=== PATIENT | male | born 1965 | race Caucasian/White ===

== ENCOUNTER 2016-11-01 19:43 | Emergency (ER) | payer OTHER ==
[~2016-11-01] VITALS: Ht 170.2 cm; Wt 73.5 kg
[2016-11-01 19:46] VITALS: Ht 170.2 cm; Wt 73.5 kg
--- NOTE | 2016-11-01 23:34 | ERD ---
ER Documentation Chief Complaint Date/Time DATE: 11/01/16 TIME: 23:26 Chief Complaint dizziness x 3 weeks on and off HPI This pleasant 51-year-old male patient reports 2 week history of dizziness. Patient reports he was seen and treated by his primary care physician for vertigo with meclizine, allergic rhinitis with loratadine, and a sleeping pill for insomnia. Patient reports that he took all medication as prescribed, is out of meclizine reports he is still dizzy when he turns his head. Patient reports he is not able to work because of dizziness. He denies symptoms at this time. Reports that he has had nausea and vomiting. Patient reports it feels like he is spinning. Patient also reports history of seasonal allergies, states he has a bad taste in his mouth and no appetite. Patient denies headache , dizziness at this time, chest pain, palpitations, shortness of breath, change in vision. ROS All systems reviewed and are negative except as per history of present illness. Medications Home Meds No Active Prescriptions or Reported Meds Allergies Allergies: Coded Allergies: No Known Allergy (Unverified , 09/06/14) . PMhx/Soc History of Surgery: No Anesthesia Reaction: No Hx Neurological Disorder: No Hx Respiratory Disorders: No Hx Cardiac Disorders: No Hx Psychiatric Problems: No Hx Miscellaneous Medical Probl: No (DENIES MEDICAL AND SURGICAL HX.) Hx Alcohol Use: No Hx Substance Use: No Hx Tobacco Use: No Smoking Status: Never smoker Physical Exam Vitals Vital Signs Date Time Temp Pulse Resp B/P Pulse Ox O2 Delivery O2 Flow Rate FiO2 11/01/16 19:46 98.8 85 20 170/90 100 Vitals stable, triage notes reviewed Physical Exam Const: No acute distress Head: Atraumatic Eyes: Normal Conjunctiva PERRLA, EOMI ENT: Bilateral tympanic membranes dull, retracted, nasal mucosa crusted with yellow mucus, nasal septum is inflamed, erythemic, without bleeding points, maxillary tenderness and pressure behind his eyes with leaning forward. Pharynx is pink uvula rises and falls with pronation Neck: Full range of motion. No cervical point tenderness Resp: Cardio: Abd: Skin: Back: Ext: Neur: Awake and alert Psych: Normal Mood and Affect Procedures/MDM This pleasant 51-year-old male patient reports to emergency department with 2 weeks of dizziness. Patient has been seen and treated with meclizine, patient also reports sinus symptoms, has seen his primary physician treated with loratadine. Patient reports insomnia treated with medication. Patient states that dizziness improved with meclizine but symptoms are still present he has taken the full course of medication and unable to work because of dizziness when he turns his head. Patient denies any pressure in his ears, mastoiditis is not suspected. Arrhythmia is not suspected at this point an EKG was not done. Likely cause of dizziness is vertigo, versus sinusitis. Patient will be treated with amoxicillin 3 times daily 10 days, nasal saline and meclizine. Return to emergency department for nausea, vomiting, chest pain, shortness of breath. I feel the patient is stable for discharge and outpatient management by primary care physician. I have discussed results, examination findings, the treatment plan with the patient and family present prior to discharge. Indications for emergent reevaluation, side effects of medication were also discussed. All questions were answered. Patient verbalizes understanding and agrees with plan of care. Departure Diagnosis: Primary Impression: Vertigo Additional Impression: Sinusitis, acute Sinusitis location: unspecified location Recurrence: not specified as recurrent Qualified Code: J01.90 - Acute sinusitis, recurrence not specified, unspecified location Condition: Good Patient Instructions: Acute Sinusitis, Inner Ear Problems: Causes of Dizziness (Vertigo) Additional Instructions: Thank you for for coming to [facility] for your care today. Please ask your nurse or provider if you have questions about your care today and do not leave until all your questions have been answered. Please use any medications given as directed and follow-up with your doctor (or the doctor you were referred to) in the next 2-3 days. If you do not have a primary care doctor you may follow up at the [facility] [place] (listed below). You may also use motrin and tylenol as needed for fever and/or pain unless instructed otherwise by your provider or nurse. Indications for more urgent follow-up have been discussed, but you may return to the Emergency Department at ANY time for any worrisome or worsening symptoms. If you have abdominal pain, please know that no test or exam you received is perfect and you should follow up within 8 hours for continued pain. If you had any imaging studies today, such as an X-Ray or CT Scan, these studies will be reviewed later by a radiologist. You will be called if there are important findings that were not identified today, so make sure the contact information you provided at registration is correct. If you received any narcotic pain control medicine today, such as Vicodin, Morphine or Dilaudid, your coordination and judgment may be affected for a number of hours. Please do not drive or operate heavy machinery, and you may want someone to assist you at home. If you were given a prescription for narcotic medication, be aware that it is very addictive- use sparingly and only if necessary. LOREN SANCHEZ November 01, 2016 23:34
[2016-11-01] MEDS ORDERED: AMO500 PO (23:35)
[2016-11-01] MEDS ORDERED: MECL-77 PO (23:36)
[2016-11-01] MEDS ORDERED: SODI104S2 NASAL (23:36)
[2016-11-02 00:06] VITALS: BP 165/93; PULSE 68; RESP 20; TEMP 98.6
== END 2016-11-02 00:07 | disposition home or self-care (01) ==
LOC: FTE 19:43
DX: R42 Dizziness and giddiness (principal); J01.90 Acute sinusitis, unspecified
CPT/HCPCS: 99283

== ENCOUNTER 2018-06-24 11:36 | Emergency (ER) | END 2018-06-24 13:05 | disposition home or self-care (01) ==

== ENCOUNTER 2018-06-28 09:34 | Emergency (ER) | END 2018-06-28 10:52 | disposition home or self-care (01) ==

== ENCOUNTER 2019-01-29 08:26 | Day surgery (SDC) | payer OTHER ==
[~2019-01-29] VITALS: Ht 162.6 cm; Wt 72.0 kg
[~2019-01-29 08:26] MED LIST: ACET325T33 PO; AMOX1TAB10 PO; AMOX500C2 PO; HYDR-4011 PO; IBUP800T48 PO; MECL-77 PO; SODI104S2 NASAL
[2019-01-29 08:49] VITALS: Ht 162.6 cm; Wt 72.0 kg
[2019-01-29 10:06] VITALS: BP 127/80; PULSE 58; RESP 14
[2019-01-29] MEDS ORDERED: MIDAZOLAM 1 MG/ML 2 ML INJ ONE ×2 (12:47)
[2019-01-29] MEDS ORDERED: FENTAnyl 50 MCG/ML VIAL ONE (12:47)
[2019-01-29 13:06] VITALS: BP 116/72; PULSE 63; RESP 18
== END 2019-01-29 14:18 | disposition home or self-care (01) ==
LOC: GIL 08:26
PROVIDERS: ATTEND Internal Medicine Gastroenterology
DX: Z12.11 Encounter for screening for malignant neoplasm of colon (principal); K64.4 Residual hemorrhoidal skin tags; K62.5 Hemorrhage of anus and rectum
CPT/HCPCS: 45378; J2250; J3010; Z7610